=== PATIENT | female | born 1980 | race Caucasian/White ===

== ENCOUNTER 2017-03-09 11:06 | Observation (INO) | payer MEDICAID ==
[~2017-03-09] VITALS: Ht 165.1 cm; Wt 73.9 kg
[~2017-03-09 11:06] MED LIST: INSUINJ2
[2017-03-09] MEDS ORDERED: IPRATROPIUM BROM 0.5 MG/2.5ML INH SOL NEB ONE (11:30)
[2017-03-09] MEDS ORDERED: ALBUTEROL SULF 2.5 MG/0.5ML(0.5%) NEB SOLN NEB ONE (11:30)
[2017-03-09] MEDS ORDERED: SODIUM CHLORIDE 0.9% 1,000 ML IVB ONE (11:52)
[2017-03-09 12:24] LABS: Basophils # (auto) 0.1 uL; Basophils % (auto) 1.1 % (0.0-2.0); Eosinophils # (auto) 0.1 uL; Eosinophils % (auto) 1.3 % (0.0-7.0); Hematocrit 42.1 % (36.0-46.0); Hemoglobin 14.1 g/dL (12.2-16.2); Lymphocytes # (auto) 2.1 uL; Lymphocytes % (auto) 30.3 % (10.0-50.0); Mean Corpuscular Hemoglobin 30.9 pg (28.0-32.0); Mean Corpuscular Hgb Conc. 33.4 g/dL (32.0-36.0); Mean Corpuscular Volume 92.5 fL (80.0-100.0); Monocytes # (auto) 0.6 uL; Monocytes % (auto) 7.9 % (0.0-12.0); Neutrophils # (auto) 4.1 uL; Neutrophils % (auto) 59.4 % (37.0-80.0); Nucleated Red Blood Cells % 0.1 %; Platelet Count (auto) 227 10^3/uL (140-450); Red Cell Distribution Width 13.4 % (11.8-14.3)
[2017-03-09 12:38] LABS: INR 0.98 (0.9-1.15); Prothrombin Time 10.7 sec (9.37-12.3)
[2017-03-09 13:21] LABS: Urine Bilirubin Negative (Negative); Urine Blood Negative /uL (Negative); Urine Color Yellow (Yellow); Urine Glucose Normal (Normal); Urine Ketone Negative (Negative); Urine Mucus FEW (None Seen); Urine Nitrite Negative (Negative); Urine RBC 1 /hpf (0 - 4); Urine Squamous Epithelial Cell FEW /hpf (<5); Urine Urobilinogen Normal (Negative); Urine pH 6.5 (5.0-8.0)
[2017-03-09] MEDS ORDERED: diphenhdrAMINE HCL 50 MG/1 ML VL IV ONE (13:30)
[2017-03-09] MEDS ORDERED: methylPREDNISolone SOD SUCC 125 MG/2 ML VL IV ONE (13:30)
[2017-03-09 14:29] VITALS: BP 135/91
[2017-03-09 14:42] LABS: Albumin 3.9 g/dL (3.4-5.0); BUN/Creatinine Ratio 22.6; Bilirubin, Total 0.5 mg/dL (0.2-1.0); Calcium 8.4 mg/dL (8.5-10.1); Potassium 3.6 mmol/L (3.5-5.1); Total Protein 7.7 g/dL (6.4-8.2)
== END 2017-03-09 15:18 | disposition home or self-care (01) | DRG 811 ==
LOC: ER 11:06 → OVERFLOW 11:53 → ER 15:18
PROVIDERS: ADMIT Family Medicine; ATTEND Family Medicine
DX: T78.40XA Allergy, unspecified, initial encounter (principal); N30.00 Acute cystitis without hematuria; J45.20 Mild intermittent asthma, uncomplicated; Z82.49 Family history of ischemic heart disease and other diseases of the circulatory system; R13.10 Dysphagia, unspecified; X58.XXXA Exposure to other specified factors, initial encounter
CPT/HCPCS: 36415; 71010; 80053; 80307; 81001; 83735; 85025; 85610; 85730; 94640; 96361; 96374; 96375; 99285; G0378; J1200; J2930; J7030